=== PATIENT | female | born 1950 | race Hispanic/Latino ===

== ENCOUNTER 2018-05-12 06:24 | Day surgery (SDC) | payer OTHER ==
--- NOTE | 2018-05-05 11:06 | RAD REPORT ---
EXAM DESCRIPTION: RAD - Chest Pa And Lat (2 Views) - 05/05/2018 11:00 am CLINICAL HISTORY: preop Chest pain. COMPARISON: No comparisons FINDINGS: The lungs are clear. The heart is mildly enlarged in size. No displaced fractures. Cervica l hardware plate is present.
[2018-05-05 12:14] LABS: Absolute Lymphocytes (CBC) 2.1 K/uL (0.7-4.9); Absolute Monocytes 0.8 K/uL (0.1-1.3); Absolute Neutrophil 4.2 K/uL (1.8-8.0); Basophils % 0.9 % (0-1.3); Eosinophils % 2.1 % (0-4.4); Hematocrit 40.4 % (36.0-45.0); Lymphocytes % 28.2 % (15.3-44.8); Monocytes % 10.8 % (3.3-12.3); RBC Red Blood Cell Count 4.45 M/uL (3.86-4.86)
--- NOTE | 2018-05-05 16:49 | EKG ---
Test Date: 2018-05-05 Test Time: 11:09:15 Patient Care Secretary: PINKY MEASUREMENT RESULTS: Intervals: Rate: 60 GA: 140 QRSD: 84 QT: 412 QTc: 412 Irving: P: 40 GA: 140 QRS: 31 T: 20 INTERPRETIVE STATEMENTS: Normal sinus rhythm Normal ECG No previous ECG available for comparison Electronically Signed On 05-05-18 16:48:25 PHOTO FINISH PHOTOGRAPHER by Zia Issa
[2018-05-11 12:10] LABS: Potassium 4.1 mmol/L (3.5-5.1)
[2018-05-12] MEDS ORDERED: Ringers Lactate 1,000 ML IV ONE (07:28)
[2018-05-12] MEDS ORDERED: PROPOFOL 200 MG/20 ML VIAL IV ONE ×2 (07:29→08:12)
[2018-05-12] MEDS ORDERED: LIDOCAINE 2% MPF 5 ML VIAL ONE (07:30)
[2018-05-12] MEDS ORDERED: FENTANYL CITR 100 MCG/2 ML ONE (07:30)
[2018-05-12] MEDS ORDERED: MIDAZOLAM HCL 2 MG/2 ML INJ ONE (07:30)
[2018-05-12] MEDS ORDERED: BUPIVACAINE 0.5% PF 10 ML VIAL ONE (07:35)
[2018-05-12] MEDS ORDERED: LIDOCAINE 1% MPF 5 ML VIAL ONE (07:35)
[2018-05-12] MEDS ORDERED: KETOROLAC 30 MG/ML INJ ONE (08:11)
--- NOTE | 2018-05-12 15:39 | PREOPHP ---
Date of Admission: 05/12/2018 PODIATRIC HISTORY AND PHYSICAL History Of Present Illness: This patient presented to my office with a chief complaint of painful le ft heel, present with walking, throbbing in nature, relieved by rest. The patient has been treated f or plantar fasciitis in this foot with injection therapy and steroid, orthotics, changing shoe gear, stretching, ice, night splint, all with unsatisfactory relief of pain. The patient requests surgical management. The patient has been explained the alternatives of shockwave therapy, but declines. Th e patient has had a recent bout of shingles, which has resolved. Current Medical History: Includes as mentioned above, shingles and a history of cancer. Past Surgical History: Includes , gallbladder, shoulder repair, hysterectomy, , a nd neck plate. Current Medications: Include omeprazole 40 mg, magnesium and turmeric 400 mg. Allergies: THERE ARE NO TRUE ALLERGIES. HOWEVER, THE PATIENT HAS SENSITIVITY TO CODEINE, HYDROCODON E, AND TRAMADOL. Social History: The patient admits to smoking every day. No alcohol or IV drug use. Family History: Includes cancer and reflux in her father. Physical Examination: General: The patient is healthy, well developed, well nourished, well oriented x3. Vascular: Evaluation reveals dorsalis pedis and posterior tibial pulses 4/4 bilaterally. Capillary refill time is less than 3 seconds. Temperature gradient is within normal limits. There are no vari cosities or history of DVT. Musculoskeletal: The patient has a flexible cavus foot type bilaterally with increased varus of the rearfoot and supinatus of the forefoot with adductus bilaterally. There is a dorsal medial eminence of the first metatarsal head with range of motion to 90 degrees bilaterally. Equinus is noted to be 0 degrees bilaterally per goniometer measurement. Digital exam is within normal limits. Muscle test ing, knee assessment and ankle assessment are within normal limits equal and symmetrical bilaterally. There is tenderness on palpation of the plantar fascia on the left, but not right. There are no reynolds bcutaneous soft tissue growths noted on the feet bilaterally. Skin evaluation reveals no rash, ulcer , tumor or contracture. There is some discrete callus noted on the plantar aspect of MPJ in the left foot. Neurologic: Evaluation reveals deep tendon reflexes of the patella and Achilles to be 5/5 bilaterall y. Vibratory and sharp dull sensation within normal limits. X-ray evaluation reveals an inferior calcaneal spur present with no fracture, tumor or DJD seen. Les ser metatarsals are adducted 1 to 4. Diagnosis: Plantar fasciitis, left foot, with calcaneal spur, left foot. Plan: Recommended treatment is for plantar fasciotomy of the left foot. The patient understands ris ks, benefits, and alternatives of the above-mentioned procedure including, but not limited to the ris k of pain, swelling, numbness, stiffness, nonhealing of skin and recurrence of the problem. Risks of DVT and PE have been explained to the patient. Due to lack of success of conservative treatment, no response to conservative treatment, the patient requests surgical management. Cold therapy unit has been explained to the patient. The patient will be instructed to take two 500 mg tablets of Tylenol and 3 ibuprofen every 6 hours as needed for pain and may lower it to Tylenol and 2 ibuprofen with he r omeprazole. The patient may also take her Lyrica that she still has for additional pain relief, bu t not more than twice daily on the Lyrica. The patient is scheduled for surgery at [facility] on May 12, 2018. Medical H and P will be completed by Anesthesia. Preoperative labs have been ordered. AMAN Voice ID: [id number]
--- NOTE | 2018-05-12 19:05 | OP ---
Date of Procedure: 05/12/2018 Surgeon: Joseph Roberts DPM Preoperative Diagnosis: Plantar fasciitis, left foot. Postoperative Diagnosis: Plantar fasciitis, left foot. Procedure: Plantar fasciotomy, left foot. Anesthesia: Via local infiltration. Procedure In Detail: The patient was brought to the operating room, placed on the operating room tab le in supine position. Once adequate IV sedation was obtained, the patient was injected with a total of 10 cc of 0.5% Marcaine plain. The patient was prepped and draped in the usual sterile manner. T he left extremity was elevated at 60 degrees and Esmarch bandage was applied to exsanguinate the bloo d supply. Pneumatic ankle tourniquet was elevated to 250 mmHg. The Esmarch was removed. Procedure attention was then directed to the plantar medial aspect of the left heel where a 2 cm plantar medial incision was made from the medial aspect of the plantar fascial border extending laterally 2 cm. Th e incision followed skin lines. Utilizing sharp and blunt dissection, the plantar fascia was isolate d. All neurologic structures were avoided. All bleeders were clamped and bovied. The plantar fasci a was visualized utilizing a 15 blade, an incision was made to free the plantar fascia from the left medial aspect to approximately 1/3 of the plantar fascia. This was approximately 1 cm in length. Th e superior muscle belly was visualized without damage. The area was flushed with copious amounts of sterile saline. The skin was closed utilizing 3-0 nylon horizontal mattress suture. The area was fl ushed with copious amounts of sterile saline before closure. The area was dressed with Adaptic, dry sterile gauze, dry sterile Kerlix, cold therapy pad and Calvin bandage. Pneumatic ankle tourniquet was deflated and capillary return was seen to be instantaneous to all digits. The patient will be seen in my office for postoperative care. The patient was sent to [facility] in satisfactory condition. OLGA/MAKEDA Voice ID: [id number] Report ID: [id number]
--- NOTE | 2018-05-12 19:11 | DS ---
Date of Discharge: 05/12/2018 Date Of Surgery: 05/12/2018. Surgeon: Joseph Roberts DPM. Preoperative Diagnosis: Plantar fasciitis, left foot. Postoperative Diagnosis: Plantar fasciitis, left foot. Procedure: Plantar fasciotomy left foot. Anesthesia: The patient tolerated the anesthesia and procedure well. The patient was transferred to recovery room in satisfactory condition and may be sent home per [facility] guidelines. The patient may ambulate in postop shoes. The patient has been give postop written instructions in written form as well as emergency phone numbers and instructions on how to use cold therapy unit and take her Lyrica and ibuprofen as tolerated due to her multiple allergies and narcoti cs. OLGA/MAKEDA Voice ID: [id number] Report ID: [id number]
== END 2018-05-12 09:05 | disposition home or self-care (01) ==
LOC: OR 06:24
PROVIDERS: ATTEND Podiatrist
PROC: 0JNR0ZZ Release Left Foot Subcutaneous Tissue and Fascia, Open Approach (ICD-10-PCS; principal; 2018-05-12 07:30)
DX: M72.2 Plantar fascial fibromatosis (principal); F17.210 Nicotine dependence, cigarettes, uncomplicated
CPT/HCPCS: 93005; 85025; 80048; 36415 ×2; 71046; 28008; J2704 ×2; J2250; J3010

== ENCOUNTER 2022-06-03 09:50 | Observation (INO) | payer OTHER ==
[2022-05-29 10:55] LABS: Hematocrit 38.7 % (36.0-45.0); Lymphocytes % 25.2 % (15.3-44.8); MCV 89.8 fL (80-100); MPV 8.9 fL (7.6-11.3)
[2022-05-29 11:03] LABS: Potassium 4.2 mmol/L (3.5-5.1)
[2022-05-29 11:07] LABS: SARS-CoV-2 Antigen Rapid Res Negative (Negative)
--- NOTE | 2022-05-29 11:56 | RAD REPORT ---
EXAM DESCRIPTION: RAD - Chest Pa And Lat (2 Views) - 05/29/2022 10:31 am CLINICAL HISTORY: pre op for surgery COMPARISON: Chest Pa And Lat (2 Views) dated 05/05/2018 FINDINGS: Lines: None. Lungs: No evidence of edema or pneumonia. Pleural: No significant pleural effusions or pneumothorax. Cardiac: The heart size is within normal limits. Mediastinum: Within normal limits. Bones: No acute fractures. ACDF in the cervical spine. Other: None IMPRESSION: No acute cardiopulmonary disease.
--- NOTE | 2022-05-29 16:00 | EKG ---
Test Date: 2022-05-29 Test Time: 10:10:25 Block Trimmer: MARLENE MEASUREMENT RESULTS: Intervals: Rate: 61 OH: 146 QRSD: 80 QT: 390 QTc: 392 Metcalf: P: 65 OH: 146 QRS: 64 T: 63 INTERPRETIVE STATEMENTS: Normal sinus rhythm Normal ECG Compared to ECG 05/05/2018 11:09:15 No significant changes Electronically Signed On 05-29-22 15:59:46 COMPOSITION MIXER by Murali Dominguez
[2022-06-03] MEDS ORDERED: Ringers Lactate 1,000 ML IV ONE (10:04)
[2022-06-03] MEDS ORDERED: CEFAZOLIN SODIUM 1 GM/VIAL ONE (10:04)
[2022-06-03] MEDS ORDERED: EPINEPHRINE/PF 1 MG/ML AMP ONE (11:07)
[2022-06-03] MEDS ORDERED: dexAMETHasone 10 MG/ML VIAL ONE (11:07)
[2022-06-03] MEDS ORDERED: BUPIVACAINE 0.25% PF 30 ML VIAL ONE (11:07)
[2022-06-03] MEDS ORDERED: LIDOCAINE 1% MPF 5 ML VIAL ONE (11:07)
[2022-06-03] MEDS ORDERED: GABAPENTIN 100 MG CAP ONE (11:24)
[2022-06-03] MEDS ORDERED: CELECOXIB 100 MG CAPSULE ONE (11:24)
[2022-06-03] MEDS ORDERED: ACETAMINOPHEN 500 MG TAB ONE (11:25)
[2022-06-03] MEDS ORDERED: Oxycodone HCl/Acetaminophen 1 TAB TAB ONE (11:35)
[2022-06-03] MEDS ORDERED: FENTANYL CITR 100 MCG/2 ML ONE (11:57)
[2022-06-03] MEDS ORDERED: MIDAZOLAM HCL 2 MG/2 ML INJ ONE (11:57)
[2022-06-03] MEDS ORDERED: TRANEXAMIC ACID 1,000 MG/10 ML VIAL IV ONE (12:25)
[2022-06-03] MEDS ORDERED: propofoL 200 MG/20 ML VIAL IV ONE (13:02)
[2022-06-03] MEDS ORDERED: LIDOCAINE 2% MPF 5 ML VIAL ONE (13:02)
[2022-06-03] MEDS ORDERED: dexAMETHasone 4 MG/ML VIAL ONE (14:06)
[2022-06-03] MEDS ORDERED: ONDANSETRON 4 MG/2 ML VIAL ONE (14:06)
[2022-06-03] MEDS ORDERED: LORATADINE 10 MG TAB PO PRN (15:19)
[2022-06-03] MEDS ORDERED: ACETAMINOPHEN 325 MG TABLET PO PRN (15:19)
[2022-06-03] MEDS ORDERED: HOME MED 1 EA UNK (Omeprazole [Omeprazole] 10 MG Capsule.Dr) PO PRN (15:19)
[2022-06-03] MEDS ORDERED: DOCUSATE NA 100 MG CAP PO PRN (15:19)
--- NOTE | 2022-06-03 15:19 | P.BOP ---
Preoperative diagnosis: right knee osteoarthritis Postoperative diagnosis: same Primary procedure: right total knee arthroplasty Data Processing Consultant: NONE,NONE Estimated blood loss: 40 cc Specimen: right knee bone remnants Findings: see dictation Anesthesia: General Complications: None Implants: Biomet Sarmad Persona 5 CR femur, D tibia, 10 CR poly, 26 patella Fluids & blood products: per anesthesia record; TT: 64 mins @ 300 mmHg Transferred to: Recovery Room Condition: Good
[2022-06-03 16:03] LABS: Hematocrit 34.3 % (36.0-45.0)
--- OUTSIDE RECORDS SUMMARY | 2022-06-03 16:04 | XMS REPORT | Continuity of Care Document ---
:1950 Author Organization [facility] t Address [address] [place] [address] Care Team Providers Name Role Phone Hasmukh Wallis Attending Clinician Unavailable Shakeel Rodriguez Attending Clinician Unavailable Shakeel Rodriguez Admitting Clinician Unavailable Payers Payer Name Policy Type Policy Number Effective Date Expiration Date S wolfgang AETNA 53 [id number] 2021 Common Spiri t 00:00:00 - [facility] AETNA 53 [id number] Common Spiri t - [facility] AETNA MEDICARE 53 [id number] Common Spi rit - [facility] Problems Condition Condition Condition Status Onset Resolution Last Treating Co mments Source Name Details Category Date Date Treatment Clinician Date [id number] Basal cell Problem Co mmon carcinoma Spirit of skin of - [facility] nose [facility] [id number] Arthritis Problem Co mmon [id number] of right Spirit knee - [facility] [id number] Essential Problem Comm on (primary) Spirit hypertensi - [facility] on [facility] Gastro-eso Gastro-eso Problem C ommon phageal phageal Spirit reflux reflux - [facility] disease disease [facility] Osteopenia Osteopenia Problem C ommon Spirit - [facility] Arthralgia Hip pain, Problem Co mmon of the right Spirit pelvic - [facility] region and [facility] [id number] Acute Problem Common vaginitis [facility] Migraine Migraine Problem Commo n aura headache Spirit without without - [facility] headache aura [facility] [id number] Hypercalce Problem Com mon ellie Spirit [facility] Osteoarthr Osteoarthr Problem C ommon itis of itis of Spirit knee knee, - [facility] unspecifie [facility] laterality Medica l , Center unspecifie d osteoarthr itis type [id number] Post Problem Common herpetic Spirit neuralgia - [facility] [id number] Body mass Problem Com mon index Spirit (BMI) of - CHI 32.0-32.9 [facility] in [facility] [id number] Other Problem Common obesity Spirit due to - [facility] excess [facility] [id number] Mixed Problem Common hyperlipid Spirit emia [facility] [id number] [place] [id number] osteoarthr Spirit itis of - [facility] left knee [facility] Allergies, Adverse Reactions, Alerts Allergy Allergy Status Severity Reaction(s) Onset Inactive Treating Comm ents Source Name Type Date Date Clinician VICODIN DA Active U 2007-04 [facility] 0-14 Clear 00:00: Rose [facility] CODEINE DA Active U 2007-04 [facility] 0-14 Clear 00:00: Rose [facility] MORPHINE DA Active U 2007-04 [facility] 0-14 Clear 00:00: Rose [facility] No Known DA Active U 2007-04 [facility] Contrast 0-14 Clear Allergie 00:00: Rose s [facility] No Known DA Active U 2007-04 [facility] Food 0-14 Clear Allergie 00:00: Rose s [facility] No Known DA Active U 2007-04 [facility] Other 0-14 Clear Allergie 00:00: Rose s [facility] codeine DA Active U 2001- [facility] 2-03 Clear 00:00: Rose [facility] Codeine Codeine Active Unknown Common [facility] Social History Social Habit Start Date Stop Date Quantity Comments Source History of Tobacco Use Co mmon [facility] Sex Assigned At Com mon [facility] Smoking Status Start Date Stop Date Source Never Smoker Common [facility] Medications Ordered Filled Start Stop Current Ordering Indication Dosage Frequency Signature Comments Components Source Medication Medication Date Date Medication? Clinician (SIG) Name Name Audrey Bricenogeovanna 2021-04 No 1{appli BID Triamcinol ne ne 2-27 cation} one Acetonide Acetonide 00:00: Acetonide 0.1 % 0.1 % 00 0.1 % Triamcinolo Triamcinolo 2021-04 No 1{appli BID Triamcinol ne ne 2-27 cation} one Acetonide Acetonide 00:00: Acetonide 0.1 % 0.1 % 00 0.1 % Triamcinolo Triamcinolo 2021-04 No 1{appli BID Triamcinol ne ne 2-27 cation} one Acetonide Acetonide 00:00: Acetonide 0.1 % 0.1 % 00 0.1 % Triamcinolo Triamcinolo 2021-04 No 1{appli BID Triamcinol ne ne 2-27 cation} one Acetonide Acetonide 00:00: Acetonide 0.1 % 0.1 % 00 0.1 % Triamcinolo Triamcinolo 2021-04 No 1{appli BID Triamcinol ne ne 2-27 cation} one Acetonide Acetonide 00:00: Acetonide 0.1 % 0.1 % 00 0.1 % Triamcinolo Triamcinolo 2021-04 No 1{appli BID Triamcinol ne ne 2-27 cation} one Acetonide Acetonide 00:00: Acetonide 0.1 % 0.1 % 00 0.1 % Ketorolac Ketorolac 2021-0 No 30mg Com mon 15mg 15mg 7-15 Spirit 00:00: - [facility] Ketorolac Ketorolac 2021-0 No 30mg Com mon 15mg 15mg 7-15 Spirit 00:00: - [facility] Ketorolac Ketorolac 2021-0 No 30mg Com mon 15mg 15mg 7-15 Spirit 00:00: [facility] Ketorolac Ketorolac 2021-0 No 30mg Com mon 15mg 15mg 7-15 Spirit 00:00: - [facility] Ketorolac Ketorolac 2-0 No 30mg Com mon 15mg 15mg 7-15 Spirit 00:00: - [facility] Ketorolac Ketorolac 2-0 No 30mg Com mon 15mg 15mg 7-15 Spirit 00:00: - [facility] Ketorolac Ketorolac 2-0 No 30mg Com mon 15mg 15mg 7-15 Spirit 00:00: - [facility] Ketorolac Ketorolac 2-0 No 30mg Com mon 15mg 15mg 7-15 Spirit 00:00: - [facility] Ketorolac Ketorolac 2-0 No 30mg Com mon 15mg 15mg 7-15 Spirit 00:00: - [facility] Ketorolac Ketorolac 2-0 No 30mg Com mon 15mg 15mg 7-15 Spirit 00:00: - [facility] Ketorolac Ketorolac 2-0 No 30mg Com mon 15mg 15mg 7-15 Spirit 00:00: - [facility] Pseudoeph-B Pseudoeph-B 2021- No 10{ml_a TID Pseudoeph- romphen-DM romphen-DM 08-28 s_neede Bromphen-D 11-05-19 11-05-19 00:00: 00:00 d} M 30-1-20 MG/5ML MG/5ML 00 :00 MG/5ML Pseudoeph-B Pseudoeph-B 2021- No 10{ml_a TID Pseudoeph- romphen-DM romphen-DM 08-28 s_neede Bromphen-D 11-05-19 11-05-19 00:00: 00:00 d} M 30-1-20 MG/5ML MG/5ML 00 :00 MG/5ML Pseudoeph-B Pseudoeph-B 2021- No 10{ml_a TID Pseudoeph- romphen-DM romphen-DM 08-28 s_neede Bromphen-D 11-05-19 00:00: 00:00 d} M 30-1-20 MG/5ML MG/5ML 00 :00 MG/5ML Pseudoeph-B Pseudoeph-B 2021-0 2- No 10{ml_a TID Pseudoeph- romphen-DM romphen-DM 08-28 05-26 s_neede Bromphen-D 30-20 - 00:00: 00:00 d} M 30-1-20 MG/5ML MG/5ML 00 :00 MG/5ML Bupivicaine Bupivicaine 2021-0 No 2.5mg Common Sullivan Sullivan 1-13 Spirit 00:00: - [facility]I 00 [facility] Bupivicaine Bupivicaine 2021-0 No 2.5mg Common Sullivan Sullivan 1-13 Spirit 00:00: - [facility]I 00 [facility] Kenalog Kenalog 2021-0 No 40mg Common (Triamcinol (Triamcinol 1-13 S pirit one) one) 00:00: - [facility]I 00 [facility] Kenalog Kenalog 2021-0 No 40mg Common (Triamcinol (Triamcinol 1-13 S pirit one) one) 00:00: - [facility]I 00 [facility] Bupivicaine Bupivicaine 2-0 No 2.5mg Common Sullivan Sullivan 1-13 Spirit 00:00: - [facility]I 00 [facility] Bupivicaine Bupivicaine 2-0 No 2.5mg Common Sullivan Sullivan 1-13 Spirit 00:00: - [facility] 00 [facility] Kenalog Kenalog 2021-0 No 40mg Common (Triamcinol (Triamcinol 1-13 S pirit one) one) 00:00: - [facility]I 00 [facility] Kenalog Kenalog 2021-0 No 40mg Common (Triamcinol (Triamcinol 1-13 S pirit one) one) 00:00: - CHI 00 [facility] Bupivicaine Bupivicaine 2-0 No 2.5mg Common Sullivan Sullivan 1-13 Spirit 00:00: - [facility]I 00 [facility] Bupivicaine Bupivicaine 2-0 No 2.5mg Common Sullivan Sullivan 1-13 Spirit 00:00: - [facility]I 00 [facility] Kenalog Kenalog 2021-0 No 40mg Common (Triamcinol (Triamcinol 1-13 S pirit one) one) 00:00: - CHI 00 [facility] Kenalog Kenalog 2021-0 No 40mg Common (Triamcinol (Triamcinol 1-13 S pirit one) one) 00:00: - [facility]I 00 [facility] Bupivicaine Bupivicaine 2021-0 No 2.5mg Common Sullivan Sullivan 1-13 Spirit 00:00: - [facility] 00 [facility] Bupivicaine Bupivicaine 2021-0 No 2.5mg Common Sullivan Sullivan 1-13 Spirit 00:00: - [facility]I 00 [facility] Jeffersonalog Kenalog 2021-0 No 40mg Common (Triamcinol (Triamcinol 1-13 S pirit one) one) 00:00: - CHI 00 [facility] Jeffersonalog Kenalog 2021-0 No 40mg Common (Triamcinol (Triamcinol 1-13 S pirit one) one) 00:00: - [facility]I 00 [facility] Bupivicaine Bupivicaine 2021-0 No 2.5mg Common Sullivan Sullivan 1-13 Spirit 00:00: - [facility]I 00 [facility] Bupivicaine Bupivicaine 2021-0 No 2.5mg Common Sullivan Sullivan 1-13 Spirit 00:00: - [facility]I 00 [facility] Kenalog Kenalog 2021-0 No 40mg Common (Triamcinol (Triamcinol 1-13 S pirit one) one) 00:00: - CHI 00 [facility] Jeffersonalog Kenalog 2021-0 No 40mg Common (Triamcinol (Triamcinol 1-13 S pirit one) one) 00:00: - CHI 00 [facility] Bupivicaine Bupivicaine 2-0 No 2.5mg Common Sullivan Sullivan 1-13 Spirit 00:00: - [facility]I 00 [facility] Bupivicaine Bupivicaine 2-0 No 2.5mg Common Sullivan Sullivan 1-13 Spirit 00:00: - [facility]I 00 [facility] Kenalog Kenalog 0 No 40mg Common (Triamcinol (Triamcinol 1-13 S pirit one) one) 00:00: - CHI 00 [facility] Swapna Kenalog 2021-0 No 40mg Common (Triamcinol (Triamcinol 1-13 S pirit one) one) 00:00: - CHI 00 [facility] Bupivicaine Bupivicaine 2021-0 No 2.5mg Common Sullivan Sullivan 1-13 Spirit 00:00: - [facility]I 00 [facility] Bupivicaine Bupivicaine 2021-0 No 2.5mg Common Sullivan Sullivan 1-13 Spirit 00:00: - [facility]I 00 [facility] Swapna Paulinoalog 2021-0 No 40mg Common (Triamcinol (Triamcinol 1-13 S pirit one) one) 00:00: - CHI 00 [facility] Swapna Paulinoalog 2021-0 No 40mg Common (Triamcinol (Triamcinol 1-13 S pirit one) one) 00:00: - CHI 00 [facility] Bupivicaine Bupivicaine 2021-0 No 2.5mg Common Sullivan Sullivan 1-13 Spirit 00:00: - [facility]I 00 [facility] Bupivicaine Bupivicaine 2021-0 No 2.5mg Common Sullivan Sullivan 1-13 Spirit 00:00: - [facility]I 00 [facility] Swapna Paulinoalog 2021-0 No 40mg Common (Triamcinol (Triamcinol 1-13 S pirit one) one) 00:00: - CHI 00 [facility] Swapna Paulinoalog 2021-0 No 40mg Common (Triamcinol (Triamcinol 1-13 S pirit one) one) 00:00: - CHI 00 [facility] Bupivicaine Bupivicaine 2021-0 No 2.5mg Common Sullivan Sullivan 1-13 Spirit 00:00: - [facility]I 00 [facility] Bupivicaine Bupivicaine 2021-0 No 2.5mg Common Sullivan Sullivan 1-13 Spirit 00:00: - CHI 00 [facility] Swapna Kenalog 2021-0 No 40mg Common (Triamcinol (Triamcinol 1-13 S pirit one) one) 00:00: - CHI 00 [facility] Jeffersonalog Kenalog 2021-0 No 40mg Common (Triamcinol (Triamcinol 1-13 S pirit one) one) 00:00: - CHI 00 [facility] Bupivicaine Bupivicaine 2021-0 No 2.5mg Common Sullivan Sullivan 1-13 Spirit 00:00: - [facility]I 00 [facility] Bupivicaine Bupivicaine 2021-0 No 2.5mg Common Sullivan Sullivan 1-13 Spirit 00:00: - CHI 00 [facility] Swapna Kenalog 2021-0 No 40mg Common (Triamcinol (Triamcinol 1-13 S pirit one) one) 00:00: - CHI 00 [facility] Swanpa Kenalog 2021-0 No 40mg Common (Triamcinol (Triamcinol 1-13 S pirit one) one) 00:00: - CHI 00 [facility] Bupivicaine Bupivicaine 2021-0 No 2.5mg Common Sullivan Sullivan 1-13 Spirit 00:00: - [facility]I 00 [facility] Bupivicaine Bupivicaine 2021-0 No 2.5mg Common Sullivan Sullivan 1-13 Spirit 00:00: - [facility]I 00 [facility] Swapna Kenalog 2021-0 No 40mg Common (Triamcinol (Triamcinol 1-13 S pirit one) one) 00:00: - [facility]I 00 [facility] Swapna Kenalog 2021-0 No 40mg Common (Triamcinol (Triamcinol 1-13 S pirit one) one) 00:00: - [facility]I 00 [facility] Bupivicaine Bupivicaine 2021-0 No 2.5mg Common Sullivan Sullivan 1-13 Spirit 00:00: - [facility]I 00 [facility] Bupivicaine Bupivicaine 2021-0 No 2.5mg Common Sullivan Sullivan 1-13 Spirit 00:00: - [facility]I 00 [facility] Swapna Kenalog 2021-0 No 40mg Common (Triamcinol (Triamcinol 1-13 S pirit one) one) 00:00: - CHI 00 [facility] Kenalog Kenalog 0 No 40mg Common (Triamcinol (Triamcinol 1-13 S pirit one) one) 00:00: - [facility]I 00 [facility] Bupivicaine Bupivicaine 2021-0 No 2.5mg Common Sullivan Sullivan 1-13 Spirit 00:00: - [facility]I 00 [facility] Bupivicaine Bupivicaine 2021-0 No 2.5mg Common Sullivan Sullivan 1-13 Spirit 00:00: - [facility]I 00 [facility] Swapna Kenalog 2021-0 No 40mg Common (Triamcinol (Triamcinol 1-13 S pirit one) one) 00:00: - CHI 00 [facility] Swapna Paulinoalog 2021-0 No 40mg Common (Triamcinol (Triamcinol 1-13 S pirit one) one) 00:00: - [facility]I 00 [facility] Bupivicaine Bupivicaine 2021-0 No 2.5mg Common Sullivan Sullivan 1-13 Spirit 00:00: - [facility]I 00 [facility] Bupivicaine Bupivicaine 2021-0 No 2.5mg Common Sullivan Sullivan 1-13 Spirit 00:00: - [facility]I 00 [facility] Swapna Kenalog 2021-0 No 40mg Common (Triamcinol (Triamcinol 1-13 S pirit one) one) 00:00: - CHI 00 [facility] Swapna Kenalog 2021-0 No 40mg Common (Triamcinol (Triamcinol 1-13 S pirit one) one) 00:00: - CHI 00 [facility] Bupivicaine Bupivicaine 2021-0 No 2.5mg Common Sullivan Sullivan 1-13 Spirit 00:00: - [facility]I 00 [facility] Bupivicaine Bupivicaine 2021-0 No 2.5mg Common Sullivan Sullivan 1-13 Spirit 00:00: - [facility]I 00 [facility] Swapna Kenalog 2021-0 No 40mg Common (Triamcinol (Triamcinol 1-13 S pirit one) one) 00:00: - CHI 00 [facility] Swapna Kenalog 2021-0 No 40mg Common (Triamcinol (Triamcinol 1-13 S pirit one) one) 00:00: - [facility]I 00 [facility] Bupivicaine Bupivicaine 2021-0 No 2.5mg Common Sullivan Sullivan 1-13 Spirit 00:00: - [facility] 00 [facility] Bupivicaine Bupivicaine 2021-0 No 2.5mg Common Sullivan Sullivan 1-13 Spirit 00:00: - [facility]I 00 [facility] Swapna Kenalog 2021-0 No 40mg Common (Triamcinol (Triamcinol 1-13 S pirit one) one) 00:00: - CHI 00 [facility] Swapna Kenalog 2021-0 No 40mg Common (Triamcinol (Triamcinol 1-13 S pirit one) one) 00:00: - CHI 00 [facility] Bupivicaine Bupivicaine 2021-0 No 2.5mg Common Sullivan Sullivan 1-13 Spirit 00:00: - [facility] Bupivicaine Bupivicaine 2021-0 No 2.5mg Common Sullivan Sullivan 1-13 Spirit 00:00: - [facility]I 00 [facility] Swapna Kenalog 2021-0 No 40mg Common (Triamcinol (Triamcinol 1-13 S pirit one) one) 00:00: - CHI 00 [facility] Swapna Kenalog 2021-0 No 40mg Common (Triamcinol (Triamcinol 1-13 S pirit one) one) 00:00: - [facility]I 00 [facility] Hydrocortis Hydrocortis 2020-04 No 3{drops TID Hydrocorti one-Acetic one-Acetic 2-09 _into_a sone-Aceti Acid 1-2 % Acid 1-2 % 00:00: ffected c Acid 1-2 00 _ear} % Hydrocortis Hydrocortis 2020-04 No 3{drops TID Hydrocorti one-Acetic one-Acetic 2-09 _into_a sone-Aceti Acid 1-2 % Acid 1-2 % 00:00: ffected c Acid 1-2 00 _ear} % Hydrocortis Hydrocortis 2020-04 No 3{drops TID Hydrocorti one-Acetic one-Acetic 2-09 _into_a sone-Aceti Acid 1-2 % Acid 1-2 % 00:00: ffected c Acid 1-2 00 _ear} % Hydrocortis Hydrocortis 2020-04 No 3{drops TID Hydrocorti one-Acetic one-Acetic 2-09 _into_a sone-Aceti Acid 1-2 % Acid 1-2 % 00:00: ffected c Acid 1-2 00 _ear} % Hydrocortis Hydrocortis 2020-04 No 3{drops TID Hydrocorti one-Acetic one-Acetic 2-09 _into_a sone-Aceti Acid 1-2 % Acid 1-2 % 00:00: ffected c Acid 1-2 00 _ear} % Hydrocortis Hydrocortis 2020-04 No 3{drops TID Hydrocorti one-Acetic one-Acetic 2-09 _into_a sone-Aceti Acid 1-2 % Acid 1-2 % 00:00: ffected c Acid 1-2 00 _ear} % Hydrocortis Hydrocortis 2020-04 No 3{drops TID Hydrocorti one-Acetic one-Acetic 2-09 _into_a sone-Aceti Acid 1-2 % Acid 1-2 % 00:00: ffected c Acid 1-2 00 _ear} % Hydrocortis Hydrocortis 2020-04 No 3{drops TID Hydrocorti one-Acetic one-Acetic 2-09 _into_a sone-Aceti Acid 1-2 % Acid 1-2 % 00:00: ffected c Acid 1-2 00 _ear} % Hydrocortis Hydrocortis 2020-04 No 3{drops TID Hydrocorti one-Acetic one-Acetic 2-09 _into_a sone-Aceti Acid 1-2 % Acid 1-2 % 00:00: ffected c Acid 1-2 00 _ear} % Hydrocortis Hydrocortis 2020-04 No 3{drops TID Hydrocorti one-Acetic one-Acetic 2-09 _into_a sone-Aceti Acid 1-2 % Acid 1-2 % 00:00: ffected c Acid 1-2 00 _ear} % Hydrocortis Hydrocortis 2020-04 No 3{drops TID Hydrocorti one-Acetic one-Acetic 2-09 _into_a sone-Aceti Acid 1-2 % Acid 1-2 % 00:00: ffected c Acid 1-2 00 _ear} % Hydrocortis Hydrocortis 2020-04 No 3{drops TID Hydrocorti one-Acetic one-Acetic 2-09 _into_a sone-Aceti Acid 1-2 % Acid 1-2 % 00:00: ffected c Acid 1-2 00 _ear} % Hydrocortis Hydrocortis 2020-04 No 3{drops TID Hydrocorti one-Acetic one-Acetic 2-09 _into_a sone-Aceti Acid 1-2 % Acid 1-2 % 00:00: ffected c Acid 1-2 00 _ear} % Hydrocortis Hydrocortis 2020-04 No 3{drops TID Hydrocorti one-Acetic one-Acetic 2-09 _into_a sone-Aceti Acid 1-2 % Acid 1-2 % 00:00: ffected c Acid 1-2 00 _ear} % Hydrocortis Hydrocortis 2020-04 No 3{drops TID Hydrocorti one-Acetic one-Acetic 2-09 _into_a sone-Aceti Acid 1-2 % Acid 1-2 % 00:00: ffected c Acid 1-2 00 _ear} % Hydrocortis Hydrocortis 2020-04 No 3{drops TID Hydrocorti one-Acetic one-Acetic 2-09 _into_a sone-Aceti Acid 1-2 % Acid 1-2 % 00:00: ffected c Acid 1-2 00 _ear} % Hydrocortis Hydrocortis 2020-04 No 3{drops TID Hydrocorti one-Acetic one-Acetic 2-09 _into_a sone-Aceti Acid 1-2 % Acid 1-2 % 00:00: ffected c Acid 1-2 00 _ear} % Hydrocortis Hydrocortis 2020-04 No 3{drops TID Hydrocorti one-Acetic one-Acetic 2-09 _into_a sone-Aceti Acid 1-2 % Acid 1-2 % 00:00: ffected c Acid 1-2 00 _ear} % Hydrocortis Hydrocortis 2020-04 No 3{drops TID Hydrocorti one-Acetic one-Acetic 2-09 _into_a sone-Aceti Acid 1-2 % Acid 1-2 % 00:00: ffected c Acid 1-2 00 _ear} % Hydrocortis Hydrocortis 2020-04 No 3{drops TID Hydrocorti one-Acetic one-Acetic 2-09 _into_a sone-Aceti Acid 1-2 % Acid 1-2 % 00:00: ffected c Acid 1-2 00 _ear} % Hydrocortis Hydrocortis 2020-04 No 3{drops TID Hydrocorti one-Acetic one-Acetic 2-09 _into_a sone-Aceti Acid 1-2 % Acid 1-2 % 00:00: ffected c Acid 1-2 00 _ear} % Hydrocortis Hydrocortis 2020-04 No 3{drops TID Hydrocorti one-Acetic one-Acetic 2-09 _into_a sone-Aceti Acid 1-2 % Acid 1-2 % 00:00: ffected c Acid 1-2 00 _ear} % *Ketorolac *Ketorolac 2018-0 No .5mL C ommon 30mg/mL 30mg/mL 04-15 Spirit 00:00: - [facility] *Ketorolac *Ketorolac 2018-0 No .5mL C ommon 30mg/mL 30mg/mL 04-15 [facility] 00:00: - [facility] *Ketorolac *Ketorolac 2018-0 No .5mL C ommon 30mg/mL 30mg/mL 04-15 [facility] 00:00: - [facility] *Ketorolac *Ketorolac 2018-0 No .5mL C ommon 30mg/mL 30mg/mL 04-15 [facility] 00:00: - [facility] *Ketorolac *Ketorolac 2019-0 No .5mL C ommon 30mg/mL 30mg/mL 04-15 [facility] 00:00: - [facility] *Ketorolac *Ketorolac 2019-0 No .5mL C ommon 30mg/mL 30mg/mL 04-15 [facility] 00:00: - [facility] *Ketorolac *Ketorolac 2019-0 No .5mL C ommon 30mg/mL 30mg/mL 04-15 [facility] 00:00: - [facility] *Ketorolac *Ketorolac 2018-0 No .5mL C ommon 30mg/mL 30mg/mL 04-15 [facility] 00:00: - [facility] *Ketorolac *Ketorolac 2018-0 No .5mL C ommon 30mg/mL 30mg/mL 04-15 [facility] 00:00: - [facility] *Ketorolac *Ketorolac 2018-0 No .5mL C ommon 30mg/mL 30mg/mL 04-15 [facility] 00:00: - [facility] *Ketorolac *Ketorolac 2018-0 No .5mL C ommon 30mg/mL 30mg/mL 04-15 [facility] 00:00: - [facility] *Ketorolac *Ketorolac 0 No .5mL C ommon 30mg/mL 30mg/mL 04-15 [facility] 00:00: - [facility] *Ketorolac *Ketorolac 2018-0 No .5mL C ommon 30mg/mL 30mg/mL 04-15 [facility] 00:00: - [facility] *Ketorolac *Ketorolac 0 No .5mL C ommon 30mg/mL 30mg/mL 04-15 [facility] 00:00: - [facility] *Ketorolac *Ketorolac 0 No .5mL C ommon 30mg/mL 30mg/mL 04-15 [facility] 00:00: - [facility] *Ketorolac *Ketorolac 2018-0 No .5mL C ommon 30mg/mL 30mg/mL 04-15 [facility] 00:00: - [facility] *Ketorolac *Ketorolac 2018-0 No .5mL C ommon 30mg/mL 30mg/mL 04-15 [facility] 00:00: - [facility] Omeprazole Omeprazole Yes Hasmukh 1 capsule Common [place] 30 minutes Spirit before - [facility] Claritin Claritin No Claritin Tylenol Tylenol No Tylenol Multi Multi No Multi Vitamin Vitamin Vitamin Katya Root Katya Root No Katya Root Omeprazole Omeprazole No Omeprazole 40 MG 40 MG 40 MG Tumersaid Tumersaid No Tumersaid Claritin Claritin No Claritin Tylenol Tylenol No Tylenol Multi Multi No Multi Vitamin Vitamin Vitamin Katya Root Katya Root No Katya Root Omeprazole Omeprazole No Omeprazole 40 MG 40 MG 40 MG Tumersaid Tumersaid No Tumersaid Multi Multi No Multi Vitamin Vitamin Vitamin Tylenol Tylenol No Tylenol Claritin Claritin No Claritin Omeprazole Omeprazole No Omeprazole 40 MG 40 MG 40 MG Katya Root Katya Root No Katya Root Tumersaid Tumersaid No Tumersaid Multi Multi No Multi Vitamin Vitamin Vitamin Tylenol Tylenol No Tylenol Claritin Claritin No Claritin Omeprazole Omeprazole No Omeprazole 40 MG 40 MG 40 MG Katya Root [place] Root No [place] Root Tylenol Tylenol No Tylenol Katya Root Katya Root No Katya Root Tumersaid Tumersaid No Tumersaid Omeprazole Omeprazole No Omeprazole 40 MG 40 MG 40 MG Claritin Claritin No Claritin Multi Multi No Multi Vitamin Vitamin Vitamin Multi Multi No Multi Vitamin Vitamin Vitamin Katya Root Kat[place] Root No Katya Root Tylenol Tylenol No Tylenol Omeprazole Omeprazole No Omeprazole 40 MG 40 MG 40 MG Claritin Claritin No Claritin Tumersaid Tumersaid No Tumersaid Multi Multi No Multi Vitamin Vitamin Vitamin Katya Root Katya Root No Katya Root Tylenol Tylenol No Tylenol Omeprazole Omeprazole No Omeprazole 40 MG 40 MG 40 MG Claritin Claritin No Claritin Tumersaid Tumersaid No Tumersaid Katya Root Katya Root No Katya Root Claritin Claritin No Claritin Tylenol Tylenol No Tylenol Tumersaid Tumersaid No Tumersaid Multi Multi No Multi Vitamin Vitamin Vitamin Omeprazole Omeprazole No Omeprazole 40 MG 40 MG 40 MG Tylenol Tylenol No Tylenol Omeprazole Omeprazole No Omeprazole 40 MG 40 MG 40 MG Katya Root Katya Root No Katya Root Multi Multi No Multi Vitamin Vitamin Vitamin Claritin Claritin No Claritin Tumersaid Tumersaid No Tumersaid Tylenol Tylenol No Tylenol Omeprazole Omeprazole No Omeprazole 40 MG 40 MG 40 MG Katya Root Kat[place] Root No Kat[place] Root Multi Multi No Multi Vitamin Vitamin Vitamin Claritin Claritin No Claritin Tumersaid Tumersaid No Tumersaid Tylenol Tylenol No Tylenol Omeprazole Omeprazole No Omeprazole 40 MG 40 MG 40 MG Katya Root [place] Root No Kat[place] Root Multi Multi No Multi Vitamin Vitamin Vitamin Claritin Claritin No Claritin Tumersaid Tumersaid No Tumersaid Tylenol Tylenol No Tylenol Omeprazole Omeprazole No Omeprazole 40 MG 40 MG 40 MG Katya Root [place] Root No [place] Root Multi Multi No Multi Vitamin Vitamin Vitamin Claritin Claritin No Claritin Tumersaid Tumersaid No Tumersaid Tylenol Tylenol No Tylenol Tumersaid Tumersaid No Tumersaid Omeprazole Omeprazole No Omeprazole 40 MG 40 MG 40 MG Multi Multi No Multi Vitamin Vitamin Vitamin Claritin Claritin No Claritin Katya Root Katya Root No Katya Root Tumersaid Tumersaid No Tumersaid Tylenol Tylenol No Tylenol Omeprazole Omeprazole No Omeprazole 40 MG 40 MG 40 MG Katya Root Katya Root No Katya Root Multi Multi No Multi Vitamin Vitamin Vitamin Claritin Claritin No Claritin Tylenol Tylenol No Tylenol Multi Multi No Multi Vitamin Vitamin Vitamin Katya Root Katya Root No Katya Root Claritin Claritin No Claritin Tumersaid Tumersaid No Tumersaid Omeprazole Omeprazole No Omeprazole 40 MG 40 MG 40 MG Tylenol Tylenol No Tylenol Multi Multi No Multi Vitamin Vitamin Vitamin [place] Root [place] Root No [place] Root Claritin Claritin No Claritin Tumersaid Tumersaid No Tumersaid Omeprazole Omeprazole No Omeprazole 40 MG 40 MG 40 MG [place] No [place] Root Claritin Claritin No Claritin Multi Multi No Multi Vitamin Vitamin Vitamin Tumersaid Tumersaid No Tumersaid Omeprazole Omeprazole No Omeprazole 40 MG 40 MG 40 MG Tylenol Tylenol No Tylenol [place] Root [place] Root No [place] Root Claritin Claritin No Claritin Multi Multi No Multi Vitamin Vitamin Vitamin Tumersaid Tumersaid No Tumersaid Omeprazole Omeprazole No Omeprazole 40 MG 40 MG 40 MG Tylenol Tylenol No Tylenol Multi Multi No Multi Vitamin Vitamin Vitamin Omeprazole Omeprazole No Omeprazole 40 MG 40 MG 40 MG Katya Root Katya Root No Katya Root Tylenol Tylenol No Tylenol Claritin Claritin No Claritin Tumersaid Tumersaid No Tumersaid Multi Multi No Multi Vitamin Vitamin Vitamin Omeprazole Omeprazole No Omeprazole 40 MG 40 MG 40 MG Katya Root Katya Root No Katya Root Tylenol Tylenol No Tylenol Claritin Claritin No Claritin Tumersaid Tumersaid No Tumersaid Multi Multi No Multi Vitamin Vitamin Vitamin Omeprazole Omeprazole No Omeprazole 40 MG 40 MG 40 MG Katya Root Katya Root No Katya Root Tylenol Tylenol No Tylenol Claritin Claritin No Claritin Tumersaid Tumersaid No Tumersaid Multi Multi No Multi Vitamin Vitamin Vitamin Omeprazole Omeprazole No Omeprazole 40 MG 40 MG 40 MG Katya Root Katya Root No Katya Root Tylenol Tylenol No Tylenol Claritin Claritin No Claritin Tumersaid Tumersaid No Tumersaid Tumersaid Tumersaid No Tumersaid Tylenol Tylenol No Tylenol Omeprazole Omeprazole No Omeprazole 40 MG 40 MG 40 MG Katya Root Katya Root No Katya Root amLODIPine amLODIPine No QD amLODIPine Besylate 10 Besylate 10 Besylate MG MG 10 MG Multi Multi No Multi Vitamin Vitamin Vitamin Claritin Claritin No Claritin Tumersaid Tumersaid No Tumersaid Tylenol Tylenol No Tylenol Omeprazole Omeprazole No Omeprazole 40 MG 40 MG 40 MG Katya Root Katya Root No Katya Root amLODIPine amLODIPine No QD amLODIPine Besylate 10 Besylate 10 Besylate MG MG 10 MG Multi Multi No Multi Vitamin Vitamin Vitamin Claritin Claritin No Claritin Omeprazole Omeprazole No Omeprazole 40 MG 40 MG 40 MG Katya Root Katya Root No Katya Root Multi Multi No Multi Vitamin Vitamin Vitamin Tumersaid Tumersaid No Tumersaid Tumersaid Tumersaid No Tumersaid Immunizations Ordered Immunization Filled Immunization Date Status Commen ts Source Name Name FLUZONE HIGH DOSE FLUZONE HIGH DOSE 2021-12-29 [facility]pleted [facility] OVER [facility] OVER 65 15:01:00 - [facility] FLUZONE HIGH DOSE FLUZONE HIGH DOSE 2021-12-29 Completed [facility] OVER 65 OVER 65 15:01:00 - [facility] FLUZONE HIGH DOSE FLUZONE HIGH DOSE 2021-12-29 Completed [facility] OVER 65 OVER 65 15:01:00 - [facility] FLUZONE HIGH DOSE FLUZONE HIGH DOSE 2021-12-29 Completed [facility] OVER 65 OVER 65 15:01:00 - [facility] FLUZONE HIGH DOSE FLUZONE HIGH DOSE 2021-12-29 Completed [facility] OVER 65 OVER 65 15:01:00 - [facility] FLUZONE HIGH DOSE FLUZONE HIGH DOSE 2021-12-29 Completed [facility] OVER 65 OVER 65 15:01:00 - [facility] FLUZONE HIGH DOSE FLUZONE HIGH DOSE 2021-12-29 Completed [facility] OVER 65 OVER 65 15:01:00 - [facility] FLUZONE HIGH DOSE FLUZONE HIGH DOSE 2021-12-29 Completed [facility] OVER 65 OVER 65 15:01:00 - [facility] FLUZONE HIGH DOSE FLUZONE HIGH DOSE 2021-12-29 Completed [facility] OVER 65 OVER 65 15:01:00 - [facility] FLUZONE HIGH DOSE FLUZONE HIGH DOSE 2021-12-29 Completed [facility] OVER 65 OVER 65 15:01:00 - [facility] Fluzone Fluzone 2021-03-20 Completed [facility] 13:28:00 - [facility] Fluzone Fluzone 2021-03-20 Completed [facility] 13:28:00 - [facility] Fluzone Fluzone 2021-03-20 Completed [facility] 13:28:00 - [facility] Fluzone Fluzone 2021-03-20 Completed [facility] 13:28:00 - [facility] Fluzone Fluzone 2021-03-20 Completed [facility] 13:28:00 - [facility] Fluzone Fluzone 2021-03-20 Completed [facility] 13:28:00 - [facility] Fluzone Fluzone 2021-03-20 Completed [facility] 13:28:00 - [facility] Fluzone Fluzone 2021-03-20 Completed [facility] 13:28:00 - [facility] Fluzone Fluzone 2021-03-20 Completed [facility] 13:28:00 - [facility] Fluzone Fluzone 2021-03-20 Completed [facility] 13:28:00 - [facility] Fluzone Fluzone 2021-03-20 Completed [facility] 13:28:00 - [facility] Fluzone Fluzone 2021-03-20 Completed [facility] 13:28:00 - [facility] Fluzone Fluzone 2021-03-20 Completed [facility] 13:28:00 - [facility] Fluzone Fluzone 2021-03-20 Completed [facility] 13:28:00 - [facility] Fluzone Fluzone 2021-03-20 Completed [facility] 13:28:00 - [facility] Fluzone Fluzone 2021-03-20 Completed [facility] 13:28:00 - [facility] Fluzone Fluzone 2021-03-20 Completed [facility] 13:28:00 - [facility] Fluzone Fluzone 2021-03-20 Completed [facility] 13:28:00 - [facility] Fluzone Fluzone 2021-03-20 Completed [facility] 13:28:00 - [facility] Fluzone Fluzone 2021-03-20 Completed [facility] 13:28:00 - [facility] Fluzone Fluzone 2021-03-20 Completed [facility] 13:28:00 - [facility] Fluzone Fluzone 2021-03-20 Completed [facility] 13:28:00 - [facility] FluAD FluAD 2019-01-04 Completed [facility] 10:49:00 - [facility] FluAD FluAD 2019-01-04 Completed [facility] 10:49:00 - [facility] FluAD FluAD 2019-01-04 Completed [facility] 10:49:00 - [facility] FluAD FluAD 2019-01-04 Completed [facility] 10:49:00 - [facility] FluAD FluAD 2019-01-04 Completed [facility] 10:49:00 - [facility] FluAD FluAD 2019-01-04 Completed [facility] 10:49:00 - [facility] FluAD FluAD 2019-01-04 Completed [facility] 10:49:00 - [facility] FluAD FluAD 2019-01-04 Completed [facility] 10:49:00 - [facility] FluAD FluAD 2019-01-04 Completed [facility] 10:49:00 - [facility] FluAD FluAD 2019-01-04 Completed [facility] 10:49:00 - [facility] FluAD FluAD 2019-01-04 Completed [facility] 10:49:00 - [facility] FluAD FluAD 2019-01-04 Completed [facility] 10:49:00 - [facility] FluAD FluAD 2019-01-04 Completed [facility] 10:49:00 - [facility] FluAD FluAD 2019-01-04 Completed [facility] 10:49:00 - [facility] FluAD FluAD 2019-01-04 Completed [facility] 10:49:00 - [facility] FluAD FluAD 2019-01-04 Completed [facility] 10:49:00 - [facility] FluAD FluAD 2019-01-04 Completed [facility] 10:49:00 - [facility] FluAD FluAD 2019-01-04 Completed [facility] 10:49:00 - [facility] FluAD FluAD 2019-01-04 Completed [facility] 10:49:00 - [facility] FluAD FluAD 2019-01-04 Completed [facility] 10:49:00 - [facility] FluAD FluAD 2019-01-04 Completed [facility] 10:49:00 - [facility] FluAD FluAD 2019-01-04 Completed [facility] 10:49:00 - [facility] FluAD FluAD 2019-01-04 Completed [facility] 10:49:00 - [facility] FluAD FluAD 2019-01-04 Completed [facility] 10:49:00 - [facility] FluAD FluAD 2019-01-04 Completed [facility] 10:49:00 - [facility] Shingrix Shingrix 2018-05-24 Completed [facility] 10:18:00 - [facility] Shingrix Shingrix 2018-05-24 Completed [facility] 10:18:00 - [facility] Shingrix Shingrix 2018-05-24 Completed [facility] 10:18:00 - [facility] Shingrix Shingrix 2018-05-24 Completed [facility] 10:18:00 - [facility] Shingrix Shingrix 2018-05-24 Completed [facility] 10:18:00 - [facility] Shingrix Shingrix 2018-05-24 Completed [facility] 10:18:00 - [facility] Shingrix Shingrix 2018-05-24 Completed [facility] 10:18:00 - [facility] Shingrix Shingrix 2018-05-24 Completed [facility] 10:18:00 - [facility] Shingrix Shingrix 2018-05-24 Completed [facility] 10:18:00 - [facility] Shingrix Shingrix 2018-05-24 Completed [facility] 10:18:00 - [facility] Shingrix Shingrix 2018-05-24 Completed [facility] 10:18:00 - [facility] Shingrix Shingrix 2018-05-24 Completed [facility] 10:18:00 - [facility] Shingrix Shingrix 2018-05-24 Completed [facility] 10:18:00 - [facility] Shingrix Shingrix 2018-05-24 Completed [facility] 10:18:00 - [facility] Shingrix Shingrix 2018-05-24 Completed [facility] 10:18:00 - [facility] Shingrix Shingrix 2018-05-24 Completed [facility] 10:18:00 - [facility] Shingrix Shingrix 2018-05-24 Completed [facility] 10:18:00 - [facility] Shingrix Shingrix 2018-05-24 Completed [facility] 10:18:00 - [facility] Shingrix Shingrix 2018-05-24 Completed [facility] 10:18:00 - [facility] Shingrix Shingrix 2018-05-24 Completed [facility] 10:18:00 - [facility] Shingrix Shingrix 2018-05-24 Completed [facility] 10:18:00 - [facility] Shingrix Shingrix 2018-05-24 Completed [facility] 10:18:00 - [facility] Shingrix Shingrix 2018-05-24 Completed [facility] 10:18:00 - [facility] Shingrix Shingrix 2018-05-24 Completed [facility] 10:18:00 - [facility] 2018-05-24 Com[facility] 10:18:00 [facility] *Ketorolac 30mg/mL *Ketorolac 30mg/mL 2018-04-15 Completed [facility] 11:47:00 - [facility] Vital Signs Vital Name Observation Time Observation Value Comments Source height 2022-05-12 14:10:00 60 [in_i] [facility] weight 2022-05-12 14:10:00 165 [lb_av] [facility] temperature 2022-05-12 14:10:00 97.9 [degF] [facility] bmi 2022-05-12 14:10:00 32.22 kg/m2 [facility] oximetry 2022-05-12 14:10:00 97 % [facility] respiratory rate 2022-05-12 14:10:00 16 /min Comm on [facility] blood pressure 2022-05-12 14:10:00 137 mm[Hg] [facility] - systolic [facility] blood pressure 2022-05-12 14:10:00 76 mm[Hg] [facility] - diastolic [facility] height 2022-05-12 15:00:00 60 [in_i] [facility] weight 2022-05-12 15:00:00 165 [lb_av] [facility] temperature 2022-05-12 15:00:00 97.9 [degF] [facility] bmi 2022-05-12 15:00:00 32.22 kg/m2 [facility] oximetry 2022-05-12 15:00:00 97 % [facility] respiratory rate 2022-05-12 15:00:00 16 /min Comm on [facility] blood pressure 2022-05-12 15:00:00 137 mm[Hg] [facility] - systolic [facility] blood pressure 2022-05-12 15:00:00 76 mm[Hg] [facility] - diastolic [facility] height 2022-04-07 15:00:00 60 [in_i] [facility] weight 2022-04-07 15:00:00 156 [lb_av] [facility] temperature 2022-04-07 15:00:00 98.1 [degF] [facility] bmi 2022-04-07 15:00:00 30.46 kg/m2 [facility] height 2022-02-11 10:00:00 60 [in_i] [facility] weight 2022-02-11 10:00:00 164.0 [lb_av] [facility] temperature 2022-02-11 10:00:00 97.9 [degF] [facility] bmi 2022-02-11 10:00:00 32.03 kg/m2 [facility] blood pressure 2022-02-11 10:00:00 134 mm[Hg] Common [facility] - systolic [facility] blood pressure 2022-02-11 10:00:00 84 mm[Hg] [facility] - diastolic [facility] height 2021-12-29 14:50:00 60 [in_i] [facility] weight 2021-12-29 14:50:00 164.1 [lb_av] [facility] temperature 2021-12-29 14:50:00 97.8 [degF] Common [facility] bmi 2021-12-29 14:50:00 32.05 kg/m2 [facility] oximetry 2021-12-29 14:50:00 98 % [facility] respiratory rate 2021-12-29 14:50:00 18 /min Comm on [facility] blood pressure 2021-12-29 14:50:00 132 mm[Hg] Common [facility] - systolic [facility] blood pressure 2021-12-29 14:50:00 67 mm[Hg] Common [facility] - diastolic [facility] height 2021-08-28 11:40:00 60 [in_i] Common [facility] weight 2021-08-28 11:40:00 167.9 [lb_av] Common [facility] bmi 2021-08-28 11:40:00 32.79 kg/m2 [facility] height 2021-07-31 14:50:00 60 [in_i] Common [facility] weight 2021-07-31 14:50:00 167.9 [lb_av] [facility] temperature 2021-07-31 14:50:00 97.4 [degF] [facility] bmi 2021-07-31 14:50:00 32.79 kg/m2 [facility] oximetry 2021-07-31 14:50:00 97 % [facility] respiratory rate 2021-07-31 14:50:00 17 /min Comm on [facility] blood pressure 2021-07-31 14:50:00 135 mm[Hg] Common [facility] - systolic [facility] blood pressure 2021-07-31 14:50:00 78 mm[Hg] Common [facility] - diastolic [facility] height 2021-04-30 10:50:00 60 [in_i] Common [facility] weight 2021-04-30 10:50:00 162.4 [lb_av] [facility] temperature 2021-04-30 10:50:00 97.1 [degF] [facility] bmi 2021-04-30 10:50:00 31.71 kg/m2 [facility] oximetry 2021-04-30 10:50:00 98 % [facility] respiratory rate 2021-04-30 10:50:00 17 /min [facility] on [facility] blood pressure 2021-04-30 10:50:00 132 mm[Hg] Common [facility] - systolic [facility] blood pressure 2021-04-30 10:50:00 72 mm[Hg] Common [facility] - diastolic [facility] height 2021-04-24 13:00:00 60 [in_i] Common [facility] weight 2021-04-24 13:00:00 158 [lb_av] [facility] temperature 2021-04-24 13:00:00 98.2 [degF] [facility] bmi 2021-04-24 13:00:00 30.85 kg/m2 [facility] blood pressure 2021-04-24 13:00:00 140 mm[Hg] Common [facility] - systolic [facility] blood pressure 2021-04-24 13:00:00 86 mm[Hg] Common [facility] - diastolic [facility] height 2021-03-20 13:40:00 60 [in_i] [facility] weight 2021-03-20 13:40:00 165.0 [lb_av] [facility] temperature 2021-03-20 13:40:00 97.3 [degF] Common [facility] bmi 2021-03-20 13:40:00 32.22 kg/m2 [facility] oximetry 2021-03-20 13:40:00 94 % [facility] respiratory rate 2021-03-20 13:40:00 17 /min [facility] on [facility] blood pressure 2021-03-20 13:40:00 135 mm[Hg] Common [facility] - systolic [facility] blood pressure 2021-03-20 13:40:00 74 mm[Hg] Common [facility] - diastolic [facility] height 2021-02-13 10:30:00 60 [in_i] [facility] weight 2021-02-13 10:30:00 158 [lb_av] [facility] temperature 2021-02-13 10:30:00 97.3 [degF] [facility] bmi 2021-02-13 10:30:00 30.85 kg/m2 [facility] - [facility] blood pressure 2021-02-13 10:30:00 132 mm[Hg] [facility] - systolic [facility] blood pressure 2021-02-13 10:30:00 78 mm[Hg] Common [facility] - diastolic [facility] height 2020-12-31 11:40:00 60 [in_i] Common [facility] weight 2020-12-31 11:40:00 167.2 [lb_av] Common [facility] temperature 2020-12-31 11:40:00 97.5 [degF] [facility] 2020-12-[facility] 11:40:00 32.65 kg/m2 [facility] oximetry 2020-12-31 11:40:00 98 % [facility] respiratory rate 2020-12-31 11:40:00 17 /min [facility] on [facility] blood pressure 2020-12-31 11:40:00 138 mm[Hg] Common [facility] - systolic [facility] blood pressure 2020-12-31 11:40:00 64 mm[Hg] Common [facility] - diastolic [facility] Procedures This patient has no known procedures. Encounters Start End Encounter Admission Attending Care Care Encounter Source Date/Time Date/Time Type Type Clinicians Facility Department ID 2022-04-07 Outpatient WallisBLAYNE pierson [facility] [id number] Common 13:19:01 [facility] 2021-10-27 [facility] [id number] 08:21:00 Has[facility] 2021-10-23 Outpatient Wallis, STLMLC STLMLC [id number] Common 13:46:00 Hasmukh [facility] 2021-07-31 Outpatient [place], STLMLC STLMLC [id number] Common 14:14:00 Hasmukh [facility] 2021-05-07 Outpatient [place], STLMLC STLMLC [id number] Common 14:38:28 Hasmukh [facility] 2021-05-07 Outpatient [place], STLMLC STLMLC [id number] Common 14:34:31 Hasmukh [facility] 2021-05-07 Outpatient [place], STLMLC STLMLC [id number] Common 14:08:52 Hasmukh [id number] [facility] 2021-05-07 Outpatient [place], STLMLC STLMLC [id number] Common 14:02:30 Hasmukh [id number] [facility] 2021-05-07 Outpatient [place], STLMLC STLMLC [id number] Common 13:06:55 Hasmukh [id number] [facility] 2021-05-07 Outpatient [place], STLMLC STLMLC [id number] Common 11:23:13 Hasmukh 26747 [facility] 2021-05-07 Outpatient [place], STLMLC STLMLC [id number] Common 11:18:11 Hasmukh 91859 [facility] 2021-05-07 Outpatient [place], STLMLC STLMLC [id number] Common 11:04:00 Hasmukh [id number] [facility] 2021-05-07 Outpatient [place], STLMLC STLMLC [id number] Common 11:03:06 Hasmukh 65939 [facility] 2021-05-07 Outpatient [place], STLMLC STLMLC [id number] Common 11:02:49 Hasmukh 28660 [facility] 2021-05-07 Outpatient [place], STLMLC STLMLC [id number] Common 11:00:26 Hasmukh 27816 [facility] 2022-05-12 2022-05-12 OFFICE STLMLC STLMLC [id number] Co mmon 00:00:00 00:00:00 VISIT EST Spir it PT LEVEL 3 - [facility] 2022-05-12 2022-05-12 SUB ANNUAL STLMLC STLMLC [id number] Common 00:00:00 00:00:00 MCR [facility] VISIT [facility] 2022-04-28 2022-04-28 (TEL) STLMLC STLMLC [id number] Co mmon 00:00:00 00:00:00 [facility] 2022-04-07 2022-04-07 (TEL) STLMLC STLMLC [id number] [facility] 00:00:00 00:00:00 [facility] 2022-04-07 2022-04-07 OFFICE STLMLC STLMLC [id number] Co mmon 00:00:00 00:00:00 VISIT EST Spir it PT LEVEL 3 - [facility] 2022-02-11 2022-02-11 OFFICE STLMLC STLMLC [id number] Co mmon 00:00:00 00:00:00 VISIT [facility] PT - CHI LEVEL 4 [facility] 2022-02-11 2022-02-11 (TEL) STLMLC STLMLC [id number] [facility] 00:00:00 00:00:00 [facility] 2022-02-11 2022-02-11 (TEL) STLMLC STLMLC [id number] [facility] 00:00:00 00:00:00 [facility] 2022-02-04 2022-02-04 (TEL) STLMLC STLMLC [id number] [facility] 00:00:00 00:00:00 [facility] 2021-12-29 2021-12-29 OFFICE STLMLC STLMLC [id number] Co mmon 00:00:00 00:00:00 VISIT [facility] PT - CHI LEVEL 4 [facility] 2021-10-24 2021-10-24 (TEL) STLMLC STLMLC [id number] [facility] 00:00:00 00:00:00 [facility] 2021-10-20 2021-10-20 (TEL) STLMLC STLMLC [id number] [facility] m[facility] 00:00:00 00:00:00 [facility] 2021-08-28 2021-08-28 OFFICE STLMLC STLMLC [id number] Co mmon 00:00:00 00:00:00 VISIT EST Spir it PT LEVEL 3 - [facility] 2021-08-28 2021-08-28 (TEL) STLMLC STLMLC [id number] Co mmon 00:00:00 00:00:00 [facility] 2021-08-28 2021-08-28 (TEL) STLMLC STLMLC [id number] [facility] 00:00:00 00:00:00 [facility] 2021-08-28 2021-08-28 (TEL) STLMLC STLMLC [id number] Co mmon 00:00:00 00:00:00 [facility] 2021-07-31 2021-07-31 OFFICE STLMLC STLMLC [id number] Co mmon 00:00:00 00:00:00 VISIT [facility] PT - CHI LEVEL 4 [facility] 2021-04-30 2021-04-30 PREV VISIT STLMLC STLMLC [id number] Common 00:00:00 00:00:00 EST AGE 64 Spi rit & OVER - [facility] 2021-04-24 2021-04-24 OFFICE STLMLC STLMLC [id number] Co mmon 00:00:00 00:00:00 VISIT [facility] ESTAB PT - CHI LEVEL 4 [facility] 2021-04-03 2021-04-03 Outpatient EL Jennifer, HCACL BURAK [id number] [facility] 12:00:00 12:00:00 Shakeel Kapadia [facility] 2021-03-20 2021-03-20 (TEL) STLMLC STLMLC [id number] Co mmon 00:00:00 00:00:00 [facility] 2021-03-20 2021-03-20 OFFICE STLMLC STLMLC [id number] Co mmon 00:00:00 00:00:00 VISIT EST Spir it PT LEVEL 3 - [facility] 2021-03-20 2021-03-20 (TEL) STLMLC STLMLC [id number] Co mmon 00:00:00 00:00:00 [facility] 2021-03-19 2021-03-19 Outpatient LEONARD Rodriguez, SOMMER SUMNER [id number] [facility] 12:00:00 12:00:00 Shakeel 45 [facility] 2021-03-11 2021-03-11 Outpatient LEONARD Rodriguez, SOMMER SUMNER [id number] [facility] 12:00:00 12:00:00 Shakeel 61 [facility] 2021-02-27 2021-02-27 (TEL) STLMLC STLMLC [id number] [facility] 00:00:00 00:00:00 [facility] 2021-02-13 2021-02-13 OFFICE STLMLC STLMLC [id number] Co mmon 00:00:00 00:00:00 VISIT [facility] ESTAB PT - [facility] LEVEL 4 [facility] 2020-12-31 2020-12-31 OFFICE STLMLC STLMLC [id number] Co mmon 00:00:00 00:00:00 VISIT EST Spir it PT LEVEL 3 [facility] 2020-09-03 2020-09-03 Outpatient STLMLC STLMLC [id number] [facility] 00:00:00 00:00:00 [facility] 2020-06-04 2020-06-04 Outpatient STLMLC STLMLC [id number] [facility] 00:00:00 00:00:00 [facility] 2020-06-04 2020-06-04 Outpatient STLMLC STLMLC [id number] [facility] 00:00:00 00:00:00 [facility] 2020-01-08 2020-01-08 Outpatient STLMLC STLMLC [id number] [facility] 00:00:00 00:00:00 [facility] 2019-09-07 2019-09-07 [place] [facility] [id number] [facility] 10:30:00 10:30:[address] [facility] 2019-05-10 2019-05-10 [place] [facility] [id number] [facility] 10:45:00 10:45:00 [address] [place] [address] [facility] 2019-05-02 2019-05-02 [place]patient [place] [facility] [id number] [facility] 16:47:00 16:47:00 [address] [place] [address] Sp[address] [facility] 2019-04-25 2019-04-25 Outpatient [place]ie [place] [id number] [facility] 14:40:00 14:40:00 [facility] Spir [address] [facility] Results Test Description Test Time Test Comments Results Result Comments Source SURGICAL PATH SPECIMENS 2021-04-07 15:09:00 Test Item Value Reference Range Interpretation Comme nts SURGICAL RUN PATH DATE: 04/07/21 [facility] - LAB PAGE 1 RUN TIME: 1509 Specimen Inquiry RUN USER: INTERFACE SPECIMENS SONI (test code ENT: MIKA ROA LOC: BITA Streeter #: [id number] AGE/SX: 70/F = S) ROOM: RE04/03/21REG DR: Otoniel mayer Referred : 49 BED: DIS: STATUS: PRE REF TLOC: SPEC #: [id number] RECD: STATUS: CYRIL PUENTES #: [id number] GARY: 04/03/21- SUBM DR: Beverly Millard MD ENTERE SP TYPE: SURG SPEC OTHR DR: Shakeel Rodriguez MD ORDERED: [id number] CODES: [id number] - BREAST, NOS COPIES TO: Beverly Millard MD [address] [place] [address] Shakeel Rodriguez MD [address] [place] [id number] PROCEDURES: [id number] (04/03/21) TISSUES: BREAST, NOS - RIGHT BX FINAL DIAGNOSIS Right breast, 03/12 :00, positive and negative for calcifications, core biopsy: 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 GROSS AND MICROSCOPIC GROSS EXAMINATION: #1 shows 2 core biopsies measuring up to 1.5 cm each. Entirely submitted A. #2 shows 4 core biopsies kesha suring up to 1.5 cm each. Entirely submitted B. MICROSCOPIC EXAMINATION: Sections reveal fibroadenoma with associated microcalcifications and fibrocystic changes. REVIEWED BY: GIOVANNA Signed Alondra Hernández 04/07/21 1509 END OF REPORT MRI Knee Right Wo ContMRI Knee Right Wo Cont
--- NOTE | 2022-06-03 16:14 | RAD REPORT ---
EXAM DESCRIPTION: RAD - Knee Right 2 View - 06/03/2022 3:49 pm CLINICAL HISTORY: Postop COMPARISON: None. FINDINGS: Two views of the right knee. A right total knee arthroplasty has been performed. Hardware is in satisfactory alignment, without ev idence of immediate complications. Soft tissue gas and Skin ignacio are noted. No suspicious osseous lesions. IMPRESSION: Postoperative right knee following right total-knee arthroplasty with no unexpected find ing.
[2022-06-03] MEDS ORDERED: HYDROMORPHONE HCL 1 MG/ML INJ ONE (16:20)
[2022-06-03] MEDS ORDERED: PANTOPRAZOLE 40MG TABLET PO PRN (16:33)
[2022-06-03] MEDS: HYDROCODONE/APAP 7.5/325 MG TAB PO PRN ×2 (16:40→21:02)
[2022-06-03] MEDS: CEFAZOLIN 1 GM in NA CHLORIDE 0.9% 50 ML IVPB SCH (16:47)
[2022-06-03] MEDS: ONDANSETRON 4 MG/2 ML VIAL IV PRN (17:58)
[2022-06-03 19:49] VITALS: BMI 32.5
--- NOTE | 2022-06-03 21:07 | P.OP ---
Preoperative diagnosis: right knee osteoarthritis Postoperative diagnosis: same Primary procedure: right total knee arthroplasty Anesthesia: general Estimated blood loss: 40 cc Specimen: right knee bone remnants Findings: see dictation Operative Technique: Indication For Procedure: Belkys is a 71 year-old female presenting to my clinic with signs, symptoms and x-ray findings consistent with severe right knee osteoarthritis. I discussed with the patient at length risks and benefits associated with operative and nonoperative treatment. She had failed conservative treatment measures and had significant difficulties with ADLs secondary to her pain. We discussed operative treatment and elected to proceed with right total knee arthroplasty. She expressed understanding and elected to proceed with operative treatment. Description Of Procedure: After informed consent was obtained, the patient was identified in the preoperative holding area. The right lower extremity was marked. The patient was then taken to the PACU where she underwent a right lower extremity adductor canal block performed by Anesthesia. She was then taken to the operating room, transferred to the operating table in supine fashion, and placed under general anesthesia. The right lower extremity was then prepped and draped in usual sterile fashion. A time-out was initiated. The correct patient and procedure were confirmed and identified. The patient did receive her preoperative prophylactic antibiotics. The right lower extremity was then exsanguinated and tourniquet was inflated to 300 mmHg. Approximately 15 cm longitudinal incision was made centered over the anterior aspect of the right knee. Dissection was then taken to the extensor mechanism and a medial parapatellar arthrotomy was performed. The patella was everted and dislocated laterally and the knee was flexed in the fat pad. Medial and lateral meniscus and ACL were all excised exposing the distal femur. Excess hypertrophic synovium was also excised within the suprapatellar pouch. The patient had an MRI of her right knee preoperatively for surgical planning and creation of cutting blocks. The cutting block was then placed over the distal femur and pins were then placed. The distal femoral cutting block was then placed over the pins. An armand wing was then used to ensure proper depth cut and the distal femur was then cut. The chamfer cutting guide was then placed over the distal end of the femur. Anterior, posterior cuts as well as anterior and posterior chamfer cuts were then made again confirming proper depth of the cut using an Armand wing. Excess bone remnants were then sent to pathology for further evaluation. Next, attention was taken to the proximal tibia. A tibial jig and tibial cutting block was then placed on proximal aspect of the right tibia and locked into position. Pins were then placed and alignment guide was then used to confirm proper alignment of the cut and then coronal and sagittal planes. Once this was confirmed, the cutting jig was placed over the pins and the proximal tibia was cut. Sizing trays were then selected and size 10 mm spacer was used and there was good overall balance in flexion and extension. Next, the trial implants were then placed using the size 5 standard CR femur and a size D tibia and an 10 mm CR poly. There was overall good range of motion and good stability. The trial implants were then removed. This improved the overall stability of the knee and components. The wound was then irrigated thoroughly with normal saline and the knee was then injected with 30 cc of 0.5% Marcaine both in the posterior capsule and mediallateral gutters as well as quadriceps tendon and periosteum. The tibia was then punched. The femur was drilled. The cement was then prepared on the back table. Cement was then placed first on the tibial surface followed by size D tibia. Excess cement was removed with Makaweli elevators. Size 5 standard CR femur was then placed on the distal femur after cement was placed on the distal femur. Excess cement was then removed and a size 10 mm CR trial poly was then placed. The knee was held in extension as the cement hardened. Undersurface of the patella was prepared debriding osteophytes using rongeurs as well as osteophytes.. Cement was placed on the undersurface of the patella after it was cut and a size 26 patella was placed. Once the cement was hardened, the knee was ranged, there was good overall stability both in flexion, extension and as well as stability with varus and valgus stresses. Trial poly was then removed and a size 10 mm CR poly was then placed and locked into position. The knee was then ranged again. There was good overall range of motion both for flexion and extension with good stability. The wound was then irrigated again thoroughly with normal saline using pulse lavage. Tourniquet was let down. Hemostasis was achieved using Bovie electrocautery. Extensor mechanism was then approximated using a #1 Vicryl both in interrupted and running fashion. The fascia was then approximated using 0 Vicryl. Subcutaneous tissue was approximated with a 2-0 Vicryl. Skin was approximated using ignacio. Sterile dressings were applied. The patient was awakened and transferred back in stable condition Complications: None Implants: Biomet Sarmad Persona 5 CR femur, D tibia, 26 patella, 10 CR poly Fluids & blood products: per anesthesia record; TT: 64 mins @ 300 mmHG Transferred to: Recovery Room Condition: Good
[2022-06-03 23:36] VITALS: O2SAT 91
[2022-06-04] MEDS: CEFAZOLIN 1 GM in NA CHLORIDE 0.9% 50 ML IVPB SCH ×2 (00:28→08:55)
[2022-06-04 05:12] LABS: Hematocrit 33.1 % (36.0-45.0)
[2022-06-04] MEDS: ENOXAPARIN 30 MG/0.3 ML SQ SCH ×2 (05:42→08:55)
[2022-06-04] MEDS: HYDROCODONE/APAP 7.5/325 MG TAB PO PRN ×2 (05:42→12:23)
--- NOTE | 2022-06-04 08:48 | P.CNS ---
Date of Consult: 06/04/22 Reason for Consult: medical management Requesting Physician: Christopher Fuentes Chief Complaint: s/p right total knee arthroplasty History of Present Illness: 71-year-old female who presents to the hospital for right total knee arthroplas ty. Patient has a history of osteoarthritis as well as hypertension. Patient was having a lot of pain in that right knee so she decided to have it replaced. Patient has tolerated the procedure well. She is using a continuous passive range of motion at this point and her pain is manageable. She will work with physical therapy in the morning. If she does well anticipate discharge. Patient has a longstanding history of multiple back surgeries as well as skin cancer that has been removed from the nose. Otherwise, medically she has been doing well. We will monitor her during the perioperative period and if she is doing well tomorrow with physical therapy anticipate discharge home with pain medication and anticoagulation. Allergies lisinopril Allergy (Verified 05/29/22 09:44) Anaphylaxis tramadol Allergy (Verified 05/29/22 09:44) Hives codeine Adverse Reaction (Verified 05/29/22 09:44) stomach pain morphine Adverse Reaction (Verified 05/29/22 09:44) decreased hr Home Medications: Amlodipine [Norvasc*] 5 mg PO DAILY 05/29/22 Loratadine [Claritin*] 10 mg PO DAILY PRN 05/29/22 Multivitamin 1 each PO DAILY 05/29/22 Omeprazole 10 mg PO DAILY PRN 05/29/22 Hydrocodone 7.5/APAP 325 [[place] 7.5/325 mg*] 1 tab PO Q4H PRN tab 06/04/22 - Past Medical/Surgical History Diabetic: No -: HTN -: arthritis -: sinus headaches -: 2 c sections -: hysterectomy -: gall bladder removed -: back infusion 2 rods,4 screws, and cage -: neck surgery, plate in anterior neck -: cancer nose -: rt TKR 06/04 - Family History Mother Medical History: Heart disease - Social History Alcohol use: No CD- Drugs: No Caffeine use: Yes Place of Residence: Home Review of Systems 10-point ROS is otherwise unremarkable Physical Examination Temp Pulse Resp BP Pulse Ox 97.3 F 62 18 105/53 L 93 06/04/22 08:00 06/04/22 08:00 06/04/22 08:00 06/04/22 08:00 06/04/22 08:00 General: Alert, In no apparent distress HEENT: Atraumatic, PERRLA, Mucous membr. moist/pink, EOMI, Sclerae nonicteric Neck: Supple, 2+ carotid pulse no bruit, No LAD, Without JVD or thyroid abnormality Respiratory: Clear to auscultation bilaterally, Normal air movement Cardiovascular: Regular rate/rhythm, Normal S1 S2 Gastrointestinal: Normal bowel sounds, No tenderness Musculoskeletal: Tenderness, Other (pt has her right knee and continues passive range of motion device) Integumentary: No rashes Neurological: Normal gait, Normal speech, Normal tone, Normal affect Lymphatics: No axilla or inguinal lymphadenopathy Laboratory Data (last 24 hrs) 06/04/22 04:35: Hgb 11.2 L, Hct 33.1 L 06/03/22 15:55: Hgb 11.6 L, Hct 34.3 L - Problems (1) Status post total right knee replacement Current Visit: Yes Status: Acute (2) HTN (hypertension) Current Visit: Yes Status: Acute (3) Osteoarthritis Current Visit: Yes Status: Acute Conclusions/ Impression: Plan: 1. Continued management per orthopedics 2. Physical therapy evaluation 3. Continue antihypertensives 4. Pain control 5. GI DVT prophylaxis Critical Care: No Time Spent Managing Pts care (In Minutes): 35
[2022-06-04] MEDS ORDERED: CELECOXIB 100 MG CAPSULE PO SCH (09:00)
[2022-06-04] MEDS ORDERED: AMLODIPINE 5 MG TAB PO SCH (09:00)
[2022-06-04 12:10] VITALS: BP 104/66; TEMP 97
[2022-06-04] MEDS: ONDANSETRON 4 MG/2 ML VIAL IV PRN (12:23)
--- NOTE | 2022-06-04 13:03 | P.DS ---
Admission Date: 06/03/22 Discharge Date: 06/04/22 Disposition: DC HOME/HOME HEALTH CARE Discharge Condition: GOOD Reason for Admission: s/p right total knee arthroplasty Consultations: Hospitalist Medicine: Dr. De La Rosa Procedures: R TKA 06/03/22 Brief History of Present Illness: Belkys is a 71 yo female s/p R TKA on 06/03/22 admitted to the floor postoperatively in stable condition. Hospital Course: Belkys did well after surgery and vital signs remained stable. Dr. De La Rosa was consulted to aid with medical management. She received lovenox for DVT prophylaxis while in hospital and discharged with Xarelto and [place]. She ambulated safefly with PT and was discharged on 06/04/22 in stable condition. Vital Signs/Physical Exam: Temp Pulse Resp BP Pulse Ox 97 F 68 18 104/66 95 06/04/22 12:00 06/04/22 12:00 06/04/22 12:23 06/04/22 12:00 06/04/22 12:23 Laboratory Data at Discharge: WBC 8.00 K/uL (4.3-10.9) 05/29/22 10:18 Hgb 11.2 g/dL (12.0-15.0) L 06/04/22 04:35 Hct 33.1 % (36.0-45.0) L 06/04/22 04:35 Plt Count 267 K/uL (152-406) 05/29/22 10:18 PT 11.0 SECONDS (9.5-12.5) 05/29/22 10:18 INR 1.00 05/29/22 10:18 APTT 28.5 SECONDS (24.3-36.9) 05/29/22 10:18 Sodium 138 mmol/L (136-145) 05/29/22 10:18 Potassium 4.2 mmol/L (3.5-5.1) 05/29/22 10:18 BUN 13 mg/dL (7-18) 05/29/22 10:18 Creatinine 0.88 mg/dL (0.55-1.02) 05/29/22 10:18 Glucose 100 mg/dL (74-106) 05/29/22 10:18 Home Medications: Amlodipine [Norvasc*] 5 mg PO DAILY 05/29/22 Loratadine [Claritin*] 10 mg PO DAILY PRN 05/29/22 Multivitamin 1 each PO DAILY 05/29/22 Omeprazole 10 mg PO DAILY PRN 05/29/22 Hydrocodone 7.5/APAP 325 [[place] 7.5/325 mg*] 1 tab PO Q4H PRN tab 06/04/22 Physician Discharge Instructions: Keep dressing clean, dry and intact. Begin Xarelto tomorrow morning June 05 in the morning with breakfast and take once a day. Follow-up with Dr. Fuentes in 2 weeks for staple removal. Continue use of JESSICA hose for 2 weeks to aid with swelling. Diet: Regular Activity: Weight bearing as tolerated Followup: Christopher Fuentes MD [ACTIVE - CAN ADMIT] - 1-2 Weeks
== END 2022-06-04 14:15 | disposition home health service (06) ==
LOC: OR 09:50 → 4TH 15:58
PROVIDERS: ADMIT Orthopaedic Surgery Sports Medicine; ATTEND Orthopaedic Surgery Sports Medicine
PROC: 0SRC069 Replacement of Right Knee Joint with Oxidized Zirconium on Polyethylene Synthetic Substitute, Cemented, Open Approach (ICD-10-PCS; principal; 2022-06-03 12:15)
DX: M17.11 Unilateral primary osteoarthritis, right knee (principal); I10 Essential (primary) hypertension; Z88.6 Allergy status to analgesic agent; Z20.822 Contact with and (suspected) exposure to COVID-19
CPT/HCPCS: 93005; 85025; 80048; 36415 ×3; 85610; 88304; 88311; 85730; 85018 ×2; 85014 ×2; 71046; 73560; 97110; 97116; 97139; 97161; 97530; 94010; 87811; 27447; C1776; J2704; J1100 ×2; J0171; J2001 ×2; J1650 ×2; J2250; J3010; J7120; J2405 ×3; J0690 ×4; G0378; G0379; J1170

== ENCOUNTER 2024-08-18 06:49 | Day surgery (SDC) | payer OTHER ==
[2024-08-16 10:08] LABS: Absolute Basophils 0.1 K/uL (0-0.5); Absolute Eosinophils 0.1 K/uL (0-0.5); Absolute Monocytes 0.8 K/uL (0.1-1.3); Absolute Neutrophil 3.8 K/uL (1.8-8.0); Basophils % 1.1 % (0-1.3); Eosinophils % 1.7 % (0-4.4); Hematocrit 39.7 % (36.0-45.0); Hemoglobin 13.4 g/dL (12.0-15.0); MCH 30.3 pg (27.0-35.0); MCHC 33.9 g/dL (32.0-36.0); MCV 89.5 fL (80-100); MPV 9.5 fL (7.6-11.3); Monocytes % 11.3 % (3.3-12.3); Neutrophils % 55.9 % (41.7-73.7); Platelets 271 thou/uL (152-406); RBC Red Blood Cell Count 4.43 M/uL (3.86-4.86); Red Cell Distribution Width 13.5 % (12.1-15.2)
[2024-08-16 10:11] LABS: PT Prothrombin Time 11.4 SECONDS (10-13.0); PTT, Activated Partial Thromb 29.4 SECONDS (27.2-37.4)
--- NOTE | 2024-08-16 12:12 | RAD REPORT ---
EXAMINATION: TWO VIEW CHEST XR CLINICAL INDICATION: Female, 73 years old. Hypertension. Pre-op pending carpal tunnel release TECHNIQUE: 2 view radiographs of the chest were performed. COMPARISON: 05/29/2022 FINDINGS: The lungs are well inflated and clear. No pneumothorax or sizable effusion. The heart is normal in si ze. Mediastinal contours are unremarkable. IMPRESSION: No acute or significant abnormalities.
--- NOTE | 2024-08-17 11:44 | EKG ---
Test Date: 2024-08-16 Test Time: 09:40:21 Aws Solution Architect: NHUNG MEASUREMENT RESULTS: Intervals: Rate: 68 WA: 144 QRSD: 80 QT: 376 QTc: 399 [place]: P: 34 WA: 144 QRS: 8 T: 7 INTERPRETIVE STATEMENTS: Normal sinus rhythm Possible Left atrial enlargement Possible Inferior infarct, age undetermined Cannot rule out Anterior infarct, age undetermined Abnormal ECG Compared to ECG 05/29/2022 10:10:25 Myocardial infarct finding now present Electronically Signed On 08-17-24 11:40:27 CDT by Luis Moeller
[2024-08-18] MEDS: Ringers Lactate 1,000 ML IV ONE (07:15)
[2024-08-18] MEDS: CEFAZOLIN SODIUM 1 GM/VIAL ONE (07:59)
[2024-08-18] MEDS ORDERED: FENTANYL CITR 100 MCG/2 ML ONE (08:06)
[2024-08-18] MEDS ORDERED: ONDANSETRON 4 MG/2 ML VIAL ONE (08:06)
[2024-08-18] MEDS ORDERED: LIDOCAINE 2% MPF 5 ML VIAL ONE (08:06)
[2024-08-18] MEDS ORDERED: propofoL 200 MG/20 ML VIAL IV ONE (08:06)
[2024-08-18] MEDS: BUPIVACAINE 0.25% PF 10 ML VIAL ONE (08:28)
--- NOTE | 2024-08-18 08:56 | P.BOP ---
Preoperative diagnosis: Right carpal tunnel syndrome Postoperative diagnosis: Same Primary procedure: Right open carpal tunnel release Senior Manager Asset Protection: NONE,NONE Estimated blood loss: 1 cc Specimen: None Findings: See dictation Anesthesia: General Complications: None Implants: None Fluids & blood products: Per anesthesia record Transferred to: Recovery Room Condition: Good
--- NOTE | 2024-08-18 09:01 | P.OP ---
Preoperative diagnosis: Right carpal tunnel syndrome Postoperative diagnosis: Same Primary procedure: Right open carpal tunnel release Anesthesia: General Estimated blood loss: 1 cc Specimen: None Findings: See dictation Operative Technique: Reason for Surgery: Belkys had physical exam findings as well as EMG findings consistent with right carpal tunnel syndrome. I discussed with the patient at length risks and benefits associated with the procedure. She expressed understanding and elected proceed with operative treatment. Description of Procedure: After informed consent was obtained the patient was identified in the preoperative holding area. The right upper extremity was marked patient. Patient then brought back to the operating room transferred the operative table in supine fashion and placed under anesthesia. The right upper extremity was exsanguinated and the tourniquet was inflated to 250 mmHg. Approximately a 3 cm longitudinal incision was made just ulnar to the thenar crease. Dissection was then taken down to the palmar fascia which was identified. A Bertrand elevator was then placed just deep to the palmar fascia to protect the median nerve at all times. A 15 blade was then used to release the palmar fascia and transverse carpal ligament leaving the Bertrand elevator to protect the nerve at all times. Any remaining fascial bands were then released using a blunt tip Metzenbaum scissor. The tips were him superficially to protect the median nerve at all times. The wound was then irrigated thoroughly with normal saline. The skin was approximated using a 5-0 Prolene. Sterile dressings were applied and patient was awakened and transferred to PACU in stable condition. Postoperative plan: The patient will follow-up in 1 to 2 weeks for wound check and suture removal. She may begin to work on range of motion exercises at this time. Complications: None Implants: none Fluids & blood products: per anesthesia record Transferred to: Recovery Room Condition: Good
[2024-08-18 09:14] VITALS: TEMP 97.2; O2SAT 96
[2024-08-18] MEDS: HYDROCODONE/APAP 7.5/325 MG TAB ONE (09:44)
[2024-08-18 11:13] VITALS: BP 152/56
== END 2024-08-18 10:09 | disposition home or self-care (01) ==
LOC: OR 06:49
PROVIDERS: ATTEND Orthopaedic Surgery Sports Medicine
PROC: 01N50ZZ Release Median Nerve, Open Approach (ICD-10-PCS; principal; 2024-08-18 08:00)
DX: G56.01 Carpal tunnel syndrome, right upper limb (principal)
CPT/HCPCS: 93005 ×2; 85025; 80048; 36415; 85610; 85730; 71046; 64721; J2704; J2003; J3010; J2405; J7120; J0690